=== PATIENT | female | born 1945 | race Caucasian/White ===

== ENCOUNTER 2017-02-05 14:29 | Emergency (ER) | payer MEDICARE ==
--- NOTE | ~2017-02-05 | ER ---
[facility] 71 [facility] [address] ROOM: [place] [id number] LOCATION: [facility] ADMIT DATE: 02/05/2017 ER/Outpatient Report DISCHARGE DATE: 02/05/2017 FAMILY PHYSICIAN: PHYSICIAN, NO ATTENDING PHYSICIAN: Paris Mcdonald TIME OF ARRIVAL: 1438 hours. TIME OF EXAM: 1438 hours. CHIEF COMPLAINT: Broken left wrist. HISTORY OF PRESENT ILLNESS: The patient was transferred here from [place] for Dr. Mota to see. She states approximately 10 a.m. this morning she was jumping on a blow up mattress trying to get the air out of it when she fell and injured her left wrist. She was seen at the [place] ER. She has a fracture of the left radius and left distal ulnar scaphoid. The physician in [place] did call and talk with Dr. Mota; so, he is aware of the patient. The patient denies any numbness or tingling of her fingers. She has a wrist splint on. ALLERGIES: NO KNOWN ALLERGIES. CURRENT MEDICATIONS: Current medications are on the chart and reviewed by me. PAST MEDICAL HISTORY: Includes hypertension and hyperlipidemia. PAST SURGERIES: Include hysterectomy and cholecystectomy. SOCIAL HISTORY: She is here visiting from [place]. Denies use of tobacco, drugs, or alcohol. REVIEW OF SYSTEMS: All negative other than those mentioned in the HPI. PHYSICAL EXAMINATION: VITAL SIGNS: She weighed 82 kg. Blood pressure initially was 229/114, pulse is 66, respirations 20, temp of 99, and O2 sat was 98% on room air. PATIENT'S NAME: KENDALL VARGAS [facility] AGE: 71 Y [address] ROOM: [place], [place] [address] LOCATION: [facility] ADMIT DATE: 02/05/2017 ER/Outpatient Report DISCHARGE DATE: 02/05/2017 FAMILY PHYSICIAN: PHYSICIAN, NO ATTENDING PHYSICIAN: Paris Mcdonald GENERAL: She is awake, alert, and oriented x4. SKIN: [place], warm, and dry. RESPIRATIONS: Even and nonlabored. Lung sounds are clear throughout. HEART: Regular rate and rhythm. EXTREMITIES: Left wrist has no open areas. She has strong radial and ulnar pulses. Nail beds are pink with less than 3-second molina. She has good sensation to the tips of her fingers. EMERGENCY DEPARTMENT COURSE: Dr. Mota was contacted. He did come and evaluate the patient. Discussed with her options for treatment. Please see his written progress note. The patient prefers to go home and follow up with Orthopedic in [place] so, she will be discharged. IMPRESSION: Left wrist fracture. PLAN: Home, rest, ice, elevate, splint, and sling as needed. Follow up with a local orthopedic surgeon. If she is still in town on , she is to follow up with Dr. Mota. He did write a prescription for Percocet for the pain. She was given a Percocet before she left and tolerated it well. MONIE SERVIN APRN FOR MD VERONICA CAMACHO/abhilash /[id number] d: 02/06/17 0031 t: 02/12/17 1423, OUTPATIENT REPORT
== END 2017-02-05 16:21 | disposition disaster alternative care site (69) ==
LOC: GACC 14:29
DX: S52.92XA Unspecified fracture of left forearm, initial encounter for closed fracture (principal); S52.602A Unspecified fracture of lower end of left ulna, initial encounter for closed fracture; I10 Essential (primary) hypertension; E78.5 Hyperlipidemia, unspecified; Z90.710 Acquired absence of both cervix and uterus; Z90.49 Acquired absence of other specified parts of digestive tract; W19.XXXA Unspecified fall, initial encounter